=== PATIENT | female | born 1995 | race African-American/Black ===

== ENCOUNTER 2018-01-16 09:23 | Emergency (ER) | payer MEDICAID ==
[~2018-01-16] VITALS: Ht 162.6 cm; Wt 54.5 kg
[~2018-01-16 09:23] MED LIST: IBUPROFEN600 MG PO; PERCOCET 10/3251 TA1 PO; PRENATAL COMPLE1 TAB PO
[2018-01-16 09:39] VITALS: Ht 162.6 cm; Wt 54.5 kg
[2018-01-16] MEDS ORDERED: IBUPROFEN800 MG PO (10:51)
[2018-01-16] MEDS ORDERED: PENICILLIN V P500 MG PO (10:51)
[2018-01-16] MEDS ORDERED: CYCLOBENZAPRINE10 MG PO (10:51)
[2018-01-16] MEDS ORDERED: ACETAMINOPHEN500 M1 PO (10:51)
[2018-01-16 11:59] VITALS: BP 138/078
== END 2018-01-16 12:26 | disposition home or self-care (01) ==
LOC: D.ER 09:23
DX: K02.9 Dental caries, unspecified (principal); R68.84 Jaw pain; F17.200 Nicotine dependence, unspecified, uncomplicated

== ENCOUNTER 2018-02-25 23:23 | Emergency (ER) | payer MEDICAID ==
[~2018-02-25] VITALS: Ht 162.6 cm; Wt 49.5 kg
[~2018-02-25 23:23] MED LIST changes: +ACETAMINOPHEN500 M1 PO; +CYCLOBENZAPRINE10 MG PO; +IBUPROFEN800 MG PO; +PENICILLIN V P500 MG PO
[2018-02-25 23:28] VITALS: BP 124/69; Ht 162.6 cm; Wt 49.5 kg
[2018-02-26 02:09] LABS: HEMATOCRIT 37.9 % (36.0-48.0); HEMOGLOBIN 12.9 g/dL (12-16); LYMPHOCYTES 33.4 % (15-50); MCH 29.8 pg (26.0-34.0); MCV 87.5 fL (80.0-100.0); MEAN PLATELET VOLUME 9.1 fL (7.4-10.4); NEUTROPHILS 60.8 % (40-80); PLATELET COUNT 295 10x3/uL (130-400); RBC 4.33 10x6/uL (4.00-5.40); RDW 13.6 % (11.5-14.5); WBC 11.1 10x3/uL (4.8-10.8)
[2018-02-26 02:24] LABS: ALBUMIN 3.5 g/dL (3.4-5.0); ALKALINE PHOSPHATASE 47 U/L (46-116); ALT (SGPT) 17 U/L (10-68); BILIRUBIN - TOTAL 0.18 mg/dL (0.2-1.3); CALC OSMOLALITY 278 mosm/kg (275-300); CARBON DIOXIDE 28.2 mmol/L (21.0-32.0); CHLORIDE - SERUM 106 mmol/L (98-107); CREATININE - SERUM 0.6 mg/dL (0.6-1.3); GLUCOSE 94 mg/dL (74-106); POTASSIUM - SERUM 4.1 mmol/L (3.5-5.1); PROTEIN - SERUM 7.4 g/dL (6.4-8.2); SODIUM 140 mmol/L (136-145); UREA NITROGEN 12 mg/dL (7-18); eGFR NON AFRICAN AMERICAN > 90 mL/min (90-120)
[2018-02-26 02:33] LABS: CKMB 0.5 U/L (0.0-3.6); CREATINE KINASE 78 UL (21-215)
[2018-02-26 02:35] LABS: TROPONIN-I < 0.017 ng/mL (0.000-0.060)
== END 2018-02-26 03:20 | disposition left against medical advice (07) ==
LOC: D.ER 23:23
PROVIDERS: Family Medicine
DX: R07.9 Chest pain, unspecified (principal); F17.200 Nicotine dependence, unspecified, uncomplicated

== ENCOUNTER 2018-11-25 10:07 | Emergency (ER) | payer MEDICAID ==
[2018-11-25 10:13] VITALS: BMI 21.5
[2018-11-25] MEDS ORDERED: MEDROL DOSE PACK4 MG PO (10:51)
[2018-11-25 10:58] VITALS: BP 122/64
== END 2018-11-25 11:03 | disposition home or self-care (01) ==
LOC: D.ER 10:07
DX: J02.9 Acute pharyngitis, unspecified (principal)

== ENCOUNTER 2018-11-29 12:01 | Emergency (ER) | payer MEDICAID ==
[~2018-11-29] VITALS: Ht 162.6 cm; Wt 56.8 kg
[~2018-11-29 12:01] MED LIST changes: +MEDROL DOSE PACK4 MG PO
[2018-11-29 12:19] VITALS: Ht 162.6 cm; Wt 56.8 kg
[2018-11-29] MEDS ORDERED: FLUTICASONE PRO16 GM NASAL (12:50)
[2018-11-29] MEDS ORDERED: ZYRTEC10 MG PO (12:50)
[2018-11-29 13:16] VITALS: BP 111/69
== END 2018-11-29 13:17 | disposition home or self-care (01) ==
LOC: D.ER 12:01
DX: J30.9 Allergic rhinitis, unspecified (principal); R09.82 Postnasal drip